=== PATIENT | male | born 1940 | race Caucasian/White ===

== ENCOUNTER 2020-10-27 11:23 | Outpatient (CLI) | payer MEDICARE, OTHER, SELFPAY ==
[2020-10-27 12:32] LABS: Anion Gap 7 mmol/L (8-16); Blood Urea Nitrogen 45 mg/dL (9-20); Calcium 9.5 mg/dL (8.4-10.2); Carbon Dioxide 33 mmol/L (22-30); Chloride 102 mmol/L (98-107); Estimated Glomerular Filt Rate 39; Glucose 145 mg/dL (75-110); Potassium 4.5 mmol/L (3.4-5.0); Sodium 142 mmol/L (137-145)
== END 2020-10-27 11:24 | disposition home or self-care (01) ==
LOC: ANHSURGERY 11:28
PROVIDERS: Anesthesiology; PCP Internal Medicine; Visit Provider Urology
DX: Z01.812 Encounter for preprocedural laboratory examination (principal); Z51.81 Encounter for therapeutic drug level monitoring; Z79.899 Other long term (current) drug therapy
CPT/HCPCS: 36415; 80048

== ENCOUNTER → 2020-11-02 02:02 | Outpatient (CLI) | payer MEDICARE, OTHER, SELFPAY ==
[2020-11-02 17:04] LABS: SARS-CoV-2 RNA PCR Negative
== END ==
PROVIDERS: PCP Internal Medicine; Visit Provider Urology
DX: Z01.812 Encounter for preprocedural laboratory examination (principal); Z20.822 Contact with and (suspected) exposure to COVID-19
CPT/HCPCS: C9803; U0003; U0005

== ENCOUNTER 2020-11-05 00:56 | Day surgery (SDC) | payer MEDICARE, OTHER, SELFPAY ==
[2020-10-23 10:11] VITALS: BMI 33.3
--- NOTE | 2020-10-27 07:33 | PM.HPGS ---
History of Present Illness History of Present Illness Consent: Risks, benefits, and alternatives have been discussed and questions answered. Patient agrees to proceed with procedure. Chief complaint: BPH Narrative: Mauri Sargent is a 79 year old male who is very well known to me with a history of recurrent bladder tumors dating back to February 2011 when he presented with a large papillary lesion. He has had multiple recurrences over the years. He also typically has either frankly abnormal or atypical urinary cytologies and abnormal FISH. this occasion, his cystoscopy was normal but he had abnormal cytology and fish. A CT scan abdomen pelvis with contrast shows some slight progression in chronic bilateral hydronephrosis. Review of Systems Cardiovascular: Cardiovascular: Denies chest pain, Denies lightheadedness, Denies palpitations and Denies dyspnea Respiratory: Respiratory: Denies dyspnea Gastrointestinal: Gastrointestinal: Denies diarrhea, Denies nausea and Denies vomiting Genitourinary: Genitourinary: Denies hematuria and Denies dysuria Endocrine: Endocrine: Denies palpitations PMFSH Social History Social History Smoking status: Former smoker Additional smoking assessment comments: STATES SMOKED <PK/DAY/30+YRS-QUIT 1977 Alcohol intake: never Substance use: never Substance use type: does not use Spiritual care concerns: No Meds Home Medications and Allergies Home Medications Medication Instructions Recorded Confirmed Type aspirin [Aspir-81] 81 mg PO DAILY 10/23/20 10/23/20 History atorvastatin 20 mg HS 10/23/20 10/23/20 History clopidogrel 75 mg DAILY 10/23/20 10/23/20 History escitalopram oxalate [Lexapro] 10 mg PO QAM 10/23/20 10/23/20 History ezetimibe [Zetia] 10 mg PO DAILY 10/23/20 10/23/20 History famotidine [Pepcid] 20 mg PO BID 10/23/20 10/23/20 History furosemide 40 mg BID 10/23/20 10/23/20 History insulin aspart U-100 [Novolog See Rx Instructions .ROUTE .COMPLEX 10/23/20 10/23/20 History U-100 Insulin aspart] insulin degludec [Tresiba U-100 40 unit SUBCUT HS 10/23/20 10/23/20 History Insulin] isosorbide mononitrate 30 mg PO QAM 10/23/20 10/23/20 History metoprolol succinate 100 mg PO QAM 10/23/20 10/23/20 History mirabegron [Myrbetriq] 50 mg PO QAM 10/23/20 10/23/20 History jkucpeeh-ypw-BI-lycopen-lutein 1 tablet PO DAILY 10/23/20 10/23/20 History [Centrum Silver Men] niacin 500 mg PO 3XW 10/23/20 10/23/20 History omega 3-ysu-unv-fish oil [Fish Oil] 1 cap PO DAILY 10/23/20 10/23/20 History Allergies Allergy/AdvReac Type Severity Reaction Status Date / Time BANANAS Allergy Unknown FACIAL Uncoded 10/23/20 10:01 SWELLING Exam Const: General: no acute distress Resp: Effort & Inspection: normal respiratory effort GI: Inspection: non-distended GI Palp: No abdominal tenderness and No Guarding due to palpation present (GI) Auscultation: normal bowel sounds Assessment and Plan Assessment and plan (1) Bilateral hydronephrosis: Code(s): N13.30 - Unspecified hydronephrosis Status: Acute (2) History of neoplasm of bladder: Code(s): Z86.03 - Personal history of neoplasm of uncertain behavior Status: Acute Assessment and Plan: Cystoscopy, bilateral retrograde pyelogram and bilateral ureteroscopy
[2020-11-05] VITALS (8 sets, daily range): BP systolic 91–122; BP diastolic 51–71; PULSE 69–87; RESP 11–20; TEMP 36.3; O2SAT 94–100; BMI 34.4
--- NOTE | ~2020-11-05 | XR_ITS ---
EXAMINATION: XR retrograde pyelogram BI EXAM DATE: 11/05/2020 09:22 INDICATION: Bilateral retrograde pyelogram. TECHNIQUE: Fluoroscopy used during XR retrograde pyelogram BI performed by Dr. Jhonny Fatima MD , urologist. The radiologist Elijah Palafox M.D. dictating this report of the image(s) available was no t present for the procedure. Total fluoroscopic time of 25 seconds. The DAP for this procedure was 1106 radcm2. A total of 79 images sent to PACS from the exam. Cine run(s) available for review. FINDINGS: Right ureter was cannulated and injected. There is severe right hydroureter. Left ureter w as then cannulated and injected, also severe left hydroureter. Images of kidneys, proximal aspects of ureters not available. Correlate with procedure note. IMPRESSION: Severe bilateral hydroureter. Reviewed, dictated and finalized at location B.
--- NOTE | 2020-11-05 06:31 | WPDHPUPDATE1 ---
History and Physical Update Update Date/Time: 11/05/20 06:31 History and Physical has been reviewed, including an updated exam of the patient. There are NO changes in the patient's condition. Risks, benefits, and alternatives have been discussed and questions answered. Patient agrees to proceed with procedure.
[2020-11-05 07:34] LABS: Glucose Point of Care 106 mg/dl (65-105)
--- NOTE | 2020-11-05 07:52 | P.PNAN_ITS ---
Anes - Initial Pre Proc Eval Procedure: Operation Date: 11/05/20 08:30 Proposed Procedures p Cystoscopy, Bilateral Retrograde Pyelogram, Bilateral Ureteroscopy - Jhonny Fatima MD Date/Time: 11/05/20 07:52 Surgeon: Jhonny Fatima MD Pre Op Diagnosis: BPH Patient Data Age: 79 Gender: M Height: 5 ft 5 in Weight: 90.9 kg Allergies Allergy/AdvReac Type Severity Reaction Status Date / Time BANANAS Allergy Intermediate Rash Uncoded 11/05/20 07:06 Home Medications Medication Instructions Recorded Confirmed Type aspirin [Aspir-81] 81 mg PO DAILY 10/23/20 10/23/20 History atorvastatin 20 mg HS 10/23/20 10/23/20 History clopidogrel 75 mg DAILY 10/23/20 10/23/20 History escitalopram oxalate [Lexapro] 10 mg PO QAM 10/23/20 10/23/20 History ezetimibe [Zetia] 10 mg PO DAILY 10/23/20 10/23/20 History famotidine [Pepcid] 20 mg PO BID 10/23/20 10/23/20 History furosemide 40 mg BID 10/23/20 10/23/20 History insulin aspart U-100 [Novolog See Rx Instructions .ROUTE .COMPLEX 10/23/20 10/23/20 History U-100 Insulin aspart] insulin degludec [Tresiba U-100 40 unit SUBCUT HS 10/23/20 10/23/20 History Insulin] isosorbide mononitrate 30 mg PO QAM 10/23/20 10/23/20 History metoprolol succinate 100 mg PO QAM 10/23/20 10/23/20 History mirabegron [Myrbetriq] 50 mg PO QAM 10/23/20 10/23/20 History pojeyfhi-ctv-JX-lycopen-lutein 1 tablet PO DAILY 10/23/20 10/23/20 History [Centrum Silver Men] niacin 500 mg PO 3XW 10/23/20 10/23/20 History omega 4-xej-eem-fish oil [Fish Oil] 1 cap PO DAILY 10/23/20 10/23/20 History Laboratory Tests 11/05/20 07:31 POC Capillary Glucose 106 mg/dl H mg/dl (65-105) Patient hx anesthesia problems: none Family hx anesthesia problems: none FOR[facility]LY [facility], [facility] Past Medical History Medical History CAD (coronary artery disease) Depression Diabetes GERD (gastroesophageal reflux disease) History of neoplasm of bladder Hyperlipidemia Hypertension Pacemaker Surgical History Surgical History Hx of CABG Social History Social History Smoking status: Former smoker Additional smoking assessment comments: STATES SMOKED <PK/DAY/30+YRS-QUIT 1977 Alcohol intake: never Substance use: never Substance use type: does not use Living arrangements: with family Spiritual care concerns: No Anes - Eval Final PreProcedure Day of Procedure 11/05/20 07:52 Patient weight: obese Heart: regular rate and rhythm Lungs: decreased breath sounds Airway: Mallampati scale class II Neurological: alert and oriented Last oral intake: >/= 8 hours ASA classification: IV Emergent: no Anesthetic plan: proceed Anesthesia type and monitoring: general LMA and standard monitoring Informed Consent: The patient's anesthetic plan and its attendant risks and benefits were discussed with the patient/family/POA. Questions were solicited and answers provided to the satisfaction of the patient/family/POA.
[2020-11-05] MEDS: LACTATED RINGERS 1,000 ML 30 ML IV CONT (08:07)
[2020-11-05] MEDS: ceFAZolin 2 GM/D5W 50 ML 2 GM/50 ML BAG IVPB (08:41)
[2020-11-05] MEDS: LIDOCAINE HCL 2% GEL UROJET 10 ML PKG MUCOUS MEM (08:55)
--- NOTE | 2020-11-05 09:21 | P.OP_ITS ---
Procedure Note - Detailed Date of procedure: 11/05/20 Pre-op diagnosis: History of bladder cancer, abnormal cytology Post-op diagnosis: other (Urothelial ca. prostatic urethra) Procedure performed: 1. Cystoscopy, bilateral retrograde pyelography 2. TURBT (prostatic urethra, medium 3-4 cm) Description of procedure: Patient brought the option was prepped draped in routine sterile fashion while in dorsal lithotomy position after the uneventful induction of a general LMA anesthetic. Cystoscopy is undertaken with a 21 F rigid cystoscope. 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 The bladder itself is endoscopically normal. He has unusual patulous ureteral orifices from prior resections. These are almost certainly refluxing which explains the mild hydronephrosis noted on recen t imaging. retrograde pyelography shows patulous ureters consistent with reflux into the distal most ureter. A given the obvious neoplasm in his prostatic urethra I opted not to proceed with upper tract endoscopy. Using a resectoscope I resected the superficial implants in his prostatic urethra and cauterized the base with a rollerball. Scopes wire was removed and a 20 F urethral catheter was placed. Urinary efflux was clear at the termination. Anesthesia: GLMA Surgeon: Jhonny Fatima MD Estimated blood loss (mL): 10 Drains: Yes Packing: No Pathology: yes Complications: No immediate complications Condition: stable Disposition: PACU
[2020-11-05 09:38] LABS: Glucose Point of Care 135 mg/dl (65-105)
--- NOTE | 2020-11-05 12:53 | SUR.PHASEII ---
1130 removed the large painter bag and replaced with a leg bag per dr powers
== END 2020-11-05 11:40 | disposition home or self-care (01) ==
PROVIDERS: PCP Internal Medicine; Visit Provider Urology
PROC: (CPT 52352; principal; 2020-11-05 08:30)
DX: C68.0 Malignant neoplasm of urethra (principal); N13.30 Unspecified hydronephrosis; I25.10 Atherosclerotic heart disease of native coronary artery without angina pectoris; I10 Essential (primary) hypertension; E11.9 Type 2 diabetes mellitus without complications; E78.5 Hyperlipidemia, unspecified; K21.9 Gastro-esophageal reflux disease without esophagitis; F32.9 Major depressive disorder, single episode, unspecified; Z95.0 Presence of cardiac pacemaker; Z95.1 Presence of aortocoronary bypass graft; E66.9 Obesity, unspecified; Z68.34 Body mass index [BMI] 34.0-34.9, adult; Z87.891 Personal history of nicotine dependence; Z79.82 Long term (current) use of aspirin; Z79.02 Long term (current) use of antithrombotics/antiplatelets; Z79.4 Long term (current) use of insulin
CPT/HCPCS: 53899; 74420; 82948; 88108; 88305; A9270; C1758; C1769; J0330; J0690; J1100; J2370; J2405; J2704; J3010; J7120; Q9966

== ENCOUNTER 2022-01-07 09:15 | Outpatient (CLI) | payer MEDICARE, SELFPAY ==
--- NOTE | 2022-01-07 09:30 | ECG_ITS ---
Measurements Intervals [place] Rate: 69 P: 112 MT: 145 QRS: -86 QRSD: 166 T: 120 QT: 459 QTc: 495 Interpretive Statements ELECTRONIC ATRIAL PACEMAKER ELECTRONIC VENTRICULAR PACEMAKER ABNORMAL RHYTHM ECG NO PREVIOUS ECG AVAILABLE FOR COMPARISON Electronically Signed On 01-07-2022 16:26:43 CDT by Evens Horvath M.D.
[2022-01-07 10:03] LABS: Anion Gap 9 mmol/L (8-16); Blood Urea Nitrogen 42 mg/dL (9-20); Calcium 9.1 mg/dL (8.4-10.2); Carbon Dioxide 32 mmol/L (22-30); Chloride 98 mmol/L (98-107); Estimated Glomerular Filt Rate 39; Glucose 160 mg/dL (65-110); Potassium 4.3 mmol/L (3.4-5.0); Sodium 139 mmol/L (137-145)
== END 2022-01-07 09:16 | disposition home or self-care (01) ==
LOC: ANHSURGERY 09:22
PROVIDERS: Anesthesiology; PCP Internal Medicine; Visit Provider Urology
DX: E11.9 Type 2 diabetes mellitus without complications (principal); Z01.818 Encounter for other preprocedural examination; Z95.0 Presence of cardiac pacemaker
CPT/HCPCS: 36415; 80048; 93005

== ENCOUNTER 2022-01-13 02:11 | Day surgery (SDC) | payer MEDICARE, SELFPAY ==
[2022-01-06 12:43] VITALS: BMI 34.2
--- NOTE | 2022-01-06 12:49 | PC.NURSE ---
PRE-OP INSTRUCTIONS, PLEASE READ CAREFULLY Report to the Outpatient Waiting Room, entrance under the green pavilion located off [facility], at time _0600_ on date _01/13/22_. OR Time: _0730_. - You and your visitor will be asked a series of questions to screen for COVID 19 for your protection. - Only one visitor is allowed at this time. - The patient visitor is requested to leave or wait in car when not with patient. - A mask is required within the hospital. Patients may have clear liquids (water, carbonated beverages, clear teas, apple juice) until 3 hours prior to surgery (0430 AM) with a maximum of 20 ounces. - No food from midnight until time of surgery Take the following medications with a SIP of water the morning of surgery: _ESCITALOPRAM, ISOSORBIDE, METOPROLOL, RANOLAZINE_ Medications to discontinue __ASPIRIN, CLOPIDOGREL, FISH OIL - PER DR. MULLINS'S INSTRUCTIONS__ Medications to discontinue per ANESTHESIA -_MULTIVITAMIN 3 DAYS PRIOR TO SURGERY, Date to take last dose 01/09/22_ Please no make-up, nail arabic, hairspray, perfume, deodorant, or body powder the day of surgery. No jewelry (including any body piercings) or valuables the day of surgery, leave them at home. Please take a shower or bath the night before, or the morning of, surgery with an antibacterial soap. Wear comfortable, loose fitting clothing. - Jewelry must be removed prior to entering the operating room. Rings and piercings that are not removed may be cut off. - The hospital will not accept responsibility for valuables. - Please leave all valuables, including medications, at home the day of surgery. If you are going home after surgery, a licensed logging truck driver must drive you home. - NO public transportation without another adult. - We recommend that an adult stay with you for 24 hours following discharge. - We also recommend that you do not drive, make important decision, drink alcoholic beverages, or take any drugs that were not prescribed by your health care provider for at least 24 hours after your discharge time. Follow any additional instructions given to you from your surgeon. If you or anyone in your household have experienced Covid symptoms in the past week, please notify your surgeon or the nurse liaison at the phone number below for possible testing. Telephone instructions given to ___PT and asked if any additional questions and then verbalized understanding. Patient advised to call surgeon office or pre surgery nurse liaison [phone] if any additional questions.
--- NOTE | 2022-01-12 13:49 | WPDANESEPPF ---
Anes - Initial Pre Proc Eval Procedure: Operation Date: 01/13/22 07:30 Proposed Procedures p Trans Urethral Resection Bladder Tumor with Gemcitabine Instillation - Jhonny Fatima MD Date/Time: 01/12/22 13:49 Surgeon: Jhonny Fatima MD Pre Op Diagnosis: gross hematuria Patient Data Age: 81 Gender: M Height: 1.65 m Weight: 93.18 kg Allergies Allergy/AdvReac Type Severity Reaction Status Date / Time BANANAS Allergy Intermediate Rash Uncoded 01/06/22 12:31 Home Medications Medication Instructions Recorded Confirmed Type aspirin 81 mg tablet,delayed 81 mg PO QAM 10/23/20 01/06/22 History release atorvastatin 40 mg tablet 20 mg HS 10/23/20 01/06/22 History clopidogrel 75 mg tablet 75 mg QA 10/23/20 01/06/22 History escitalopram oxalate 10 mg tablet 10 mg PO QAM 10/23/20 01/06/22 History (Lexapro) ezetimibe 10 mg tablet (Zetia) 10 mg PO QA 10/23/20 01/06/22 History famotidine 20 mg tablet (Pepcid) 20 mg PO HS 10/23/20 01/07/22 History furosemide 40 mg tablet 40 mg BID 10/23/20 01/06/22 History insulin aspart U-100 100 unit/mL See Rx Instructions .Route .COMPLEX 10/23/20 01/06/22 History subcutaneous solution (Novolog U-100 Insulin aspart) insulin degludec 100 unit/mL 54 unit subcut 10/23/20 01/06/22 History subcutaneous solution (Tresiba U-100 Insulin) isosorbide mononitrate 30 mg 30 mg PO QAM 10/23/20 01/06/22 History tablet,extended release 24 hr metoprolol succinate 50 mg 100 mg PO QAM 10/23/20 01/06/22 History tablet,extended release 24 hr mirabegron 50 mg tablet,extended 50 mg PO QAM 10/23/20 01/06/22 History release 24 hr (Myrbetriq) ojvaftrr-nlz-zoodr acid 300 1 tablet PO QAM 10/23/20 01/06/22 History mcg-lycopene 600 mcg-lutein 300 mcg tablet (Centrum Silver Men) niacin 500 mg capsule 250 mg PO HS 10/23/20 01/06/22 History omega 5-xtq-ltw-fish oil 1,000 mg 1 cap PO QAM 10/23/20 01/06/22 History (120 mg-180 mg) capsule (Fish Oil) finasteride 5 mg tablet 5 mg QAM 01/06/22 01/06/22 History hydrochlorothiazide 12.5 mg tablet 12.5 mg PO QAM 01/06/22 01/06/22 History lancets (Accu-Chek Fastclix Lancet 01/06/22 01/06/22 History Drum) ranolazine 500 mg tablet,extended 500 mg PO BID 01/06/22 01/06/22 History release,12 hr valsartan 80 mg tablet 80 mg QAM 01/06/22 01/06/22 History Patient hx anesthesia problems: none Family hx anesthesia problems: none Results Review: All pre-operative results and documents have been reviewed as part of the pre-operative evaluation. [facility] Past Medical History Medical History (Updated 01/12/22 @ 13:50 by Bo Lopez DO) CAD (coronary artery disease) Depression Diabetes GERD (gastroesophageal reflux disease) History of neoplasm of bladder Hyperlipidemia Hypertension ICD (implantable cardioverter-defibrillator) in place LISSET (obstructive sleep apnea) CPAP Pacemaker Surgical History Surgical History (Updated 01/12/22 @ 13:50 by Bo Lopez DO) Hx of CABG x3 2001 Social History Social History Smoking status: Former smoker Tobacco type: cigarettes Second hand tobacco smoke exposure: No Additional smoking assessment comments: STATES <PK/DAY/30+YRS/QUIT 1977 Alcohol intake: never Substance use: never Substance use type: does not use Living arrangements: with family Spiritual care concerns: No Anes - Eval Final PreProcedure Day of Procedure 01/12/22 13:49 Patient weight: obese Heart: regular rate and rhythm Lungs: clear to auscultation Airway: Mallampati scale class II and special considerations poor dentition Neurological: alert and oriented Last oral intake: >/= 8 hours ASA classification: IV Emergent: no Anesthetic plan: proceed Anesthesia type and monitoring: general LMA and standard monitoring Results Review: All pre-operative results and documents have been reviewed as part of the
[2022-01-13] VITALS (10 sets, daily range): BP systolic 92–139; BP diastolic 56–70; PULSE 69–73; RESP 12–16; TEMP 36.2–36.3; O2SAT 94–100
--- NOTE | 2022-01-13 06:48 | WPDHPUPDATE1 ---
History and Physical Update Update Date/Time: 01/13/22 06:48 History and Physical has been reviewed, including an updated exam of the patient. There are NO changes in the patient's condition. Risks, benefits, and alternatives have been discussed and questions answered. Patient agrees to proceed with procedure.
[2022-01-13 06:53] LABS: Glucose Point of Care 97 mg/dl (65-105)
[2022-01-13] MEDS: LACTATED RINGERS 1,000 ML 30 ML IV CONT (06:59)
[2022-01-13] MEDS: ceFAZolin 2 GM/D5W 50 ML 2 GM/50 ML BAG IVPB (07:29)
--- NOTE | 2022-01-13 08:00 | W.PM.PROC2 ---
Procedure Note - Detailed Date of Procedure 01/13/22 Pre-op Diagnosis Recurrent bladder tumors Post-op Diagnosis Same Procedure Performed TURBT (medium, 3cm) Surgeon Jhonny Fatima MD Description of Procedure The patient was brought to the operative suite where he is prepped and draped in a routine sterile fashion while in the dorsal lithotomy position. This is done after the uneventful induction of a general LMA anesthetic. A 24F resectoscope sheath was placed in the bladder and the bladder is circumferentially inspected carefully. 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 These resected with a loop electrode. He has a larger growth in the prostatic urethra which was resected in a similar fashion. There was an area of hyperemia near the dome of the bladder which was cauterized with a rollerball. All sites were cauterized both the loop and rollerball with care taken to avoid injury to the ureteral orifices. The bladder is emptied and the resectoscope was removed. The patient is taken to the recovery room having tolerated this procedure well. Pathology Yes Complications No immediate complications Condition Stable Disposition PACU
--- NOTE | 2022-01-13 08:03 | W.PM.PROC2 ---
Procedure Note - Detailed Date of Procedure 01/13/22 Pre-op Diagnosis Recurrent bladder tumor Post-op Diagnosis Same Procedure Performed Gemcitabine installation into the bladder Surgeon Jhonny Fatima MD Anesthesia None Description of Procedure With the patient in the supine position, a 18F Arzate catheter is placed using sterile technique. Using a protective facemask, gown and double layer of gloves Gemcitabine 2gm in 100cc saline is administered through the catheter/into the bladder. The catheter is then plugged. Patient was instructed to lie supine x20min, then to roll both the left and right x20 min. each. Total dwell time will be 60 min., after which the bladder will be drained and catheter removed. Drains No Packing No Pathology None sent Complications No immediate complications Condition Stable
[2022-01-13] MEDS: SODIUM CHLORIDE 0.9% IV 23.7 ML, GEMCITABINE HCL 1,000 MG BLADDER ×2 (08:11→08:12)
[2022-01-13 08:28] LABS: Glucose Point of Care 93 mg/dl (65-105)
[2022-01-13] MEDS: fentaNYL CITRATE INJ (*CRX) 100 MCG/2 ML VIAL 25 MCG IV PUSH ×2 (08:46→08:51)
[2022-01-13] MEDS: SODIUM CHLORIDE 0.9% IV 50 ML BAG 150 ML IRRIGATION (09:15)
== END 2022-01-13 10:15 | disposition home or self-care (01) ==
PROVIDERS: PCP Internal Medicine; Visit Provider Urology
PROC: 0TBB8ZZ Excision of Bladder, Via Natural or Artificial Opening Endoscopic (ICD-10-PCS; CPT 52235; principal; 2022-01-13 07:30)
DX: C67.5 Malignant neoplasm of bladder neck (principal); R31.0 Gross hematuria; N40.1 Benign prostatic hyperplasia with lower urinary tract symptoms; N52.9 Male erectile dysfunction, unspecified; R31.29 Other microscopic hematuria; R82.90 Unspecified abnormal findings in urine; N30.00 Acute cystitis without hematuria; N32.81 Overactive bladder; Z95.810 Presence of automatic (implantable) cardiac defibrillator; I25.2 Old myocardial infarction; E78.00 Pure hypercholesterolemia, unspecified; E11.9 Type 2 diabetes mellitus without complications; G43.909 Migraine, unspecified, not intractable, without status migrainosus; M19.90 Unspecified osteoarthritis, unspecified site; K21.9 Gastro-esophageal reflux disease without esophagitis; G47.30 Sleep apnea, unspecified; Z95.1 Presence of aortocoronary bypass graft; Z79.82 Long term (current) use of aspirin; Z79.4 Long term (current) use of insulin; I25.10 Atherosclerotic heart disease of native coronary artery without angina pectoris; G47.33 Obstructive sleep apnea (adult) (pediatric); F32.A Depression, unspecified; E78.5 Hyperlipidemia, unspecified; I10 Essential (primary) hypertension
CPT/HCPCS: 52235; 51720; 82948; 88305; A9270; J0690; J1100; J2405; J2704; J3010; J7120; J9201

== ENCOUNTER 2023-02-23 13:15 | Outpatient (CLI) | payer MEDICARE, SELFPAY ==
--- NOTE | 2023-02-23 13:45 | ECG_ITS ---
Measurements Intervals [place] Rate: 67 P: 230 CT: 134 QRS: -76 QRSD: 174 T: 110 QT: 465 QTc: 494 Interpretive Statements ATRIAL SENSE- ELECTRONIC VENTRICULAR PACEMAKER BASELINE ARTIFACT- I, II, AVR NO FURTHER INTERPRETATION IS POSSIBLE ATYPICAL ECG COMPARED TO ECG 01/07/2022 09:39:00 NO SIGNIFICANT CHANGES Electronically Signed On 02-23-2023 13:57:14 CDT by James Espinoza D.O.
[2023-02-23 14:20] LABS: Partial Thromboplastin Time 31.4 SECONDS (22.3-36.8)
[2023-02-23 14:57] LABS: Anion Gap 8 mmol/L (8-16); Blood Urea Nitrogen 53 mg/dL (9-20); Carbon Dioxide 29 mmol/L (22-30); Chloride 100 mmol/L (98-107); Estimated Glomerular Filt Rate 29; Glucose 137 mg/dL (65-110); Potassium 4.4 mmol/L (3.4-5.0); Sodium 137 mmol/L (137-145)
== END 2023-02-23 13:16 | disposition home or self-care (01) ==
LOC: ANHSURGERY 13:21
PROVIDERS: Anesthesiology; PCP Family Medicine; Visit Provider Urology
DX: E11.9 Type 2 diabetes mellitus without complications (principal); I12.9 Hypertensive chronic kidney disease with stage 1 through stage 4 chronic kidney disease, or unspecified chronic kidney disease; N18.30 Chronic kidney disease, stage 3 unspecified; Z01.818 Encounter for other preprocedural examination
CPT/HCPCS: 36415; 80048; 85610; 85730; 93005

== ENCOUNTER 2023-03-02 00:50 | Day surgery (SDC) | payer MEDICARE, SELFPAY ==
[2023-02-20 10:47] VITALS: BMI 32.6
--- NOTE | 2023-02-20 11:24 | PC.NURSE ---
Report to the Outpatient Waiting Room, entrance under the green pavilion located off [facility], at time __10:00AM on date __03/02/23 . Planned Procedure Time: ___12:00PM . Time changes happen often and if your time is changed the preop area will call you the afternoon before. - You and your visitor will be asked to self-screen and do not enter if you have any COVID symptoms. - A mask is optional within the hospital at this time. Patients may have clear liquids (water, carbonated beverages, clear teas, apple juice) until 3 hours prior to surgery with a maximum of 20 ounces. - No food from midnight until time of surgery Take the following medications with a SIP of water the morning of surgery: ___CARVEDILOL, ESCITALOPRAM, ISOSORBIDE, RANOLAZINE, 1/2 DOSE AM INSULIN DO NOT STOP ANY OF YOUR OTHER PRESCRIPTION MEDICATIONS PRIOR TO SURGERY ?EXCEPT THE FOLLOWING Medications to discontinue per physician ___HOLD PLAVIX, ASPIRIN & ALL VITAMINS/SUPPLEMENTS 7 DAYS PRE-OP PER DR MULLINS(PER PATIENT). Date to take last dose____02/23/23 Please no make-up, nail indonesian, hairspray, perfume, deodorant, or body powder the day of surgery. No jewelry (including any body piercings) or valuables the day of surgery, leave them at home. Please take a shower or bath the night before, or the morning of, surgery with an antibacterial soap. Wear comfortable, loose fitting clothing. Children are encouraged to wear pajamas. - Jewelry must be removed prior to entering the operating room. Rings and piercings that are not removed may be cut off. - The hospital will not accept responsibility for valuables. - Please leave all valuables, including medications, at home the day of surgery. If you are going home after surgery, a licensed starting gate driver must drive you home. - NO public transportation without another adult if you receive anesthesia. - We recommend that an adult stay with you for 24 hours following discharge. - We also recommend that you do not drive, make important decision, drink alcoholic beverages, or take any drugs that were not prescribed by your health care provider for at least 24 hours after your discharge time. Follow any additional instructions given to you from your surgeon. If you or anyone in your household have experienced Covid symptoms in the past week, please notify your surgeon or the nurse liaison at the phone number below for possible testing. Telephone instructions given to __PATIENT and asked if any additional questions and then verbalized understanding. Patient advised to call surgeon office or pre surgery nurse liaison [phone] if any additional questions.
--- NOTE | 2023-02-23 15:47 | PM.HPGS ---
History of Present Illness History of Present Illness Consent: Risks, benefits, and alternatives have been discussed and questions answered. Patient agrees to proceed with procedure. 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 On occasion this is included /involve the prostatic urethra. Recently, although cystoscopy is grossly unremarkable, urinary cytology and FISH have been abnormal. After discussion options he elects to proceed with cystoscopy with selective upper tract cytology collection, bilateral retrograde pyelography, bladder and prostatic urethral biopsies. He wears the risk including, but not limited to, hematuria, need for additional procedures. Review of Systems Review of Systems: All systems reviewed & are unremarkable except as noted in HPI and below PMFSH Past Medical History Medical History (Updated 02/23/23 @ 15:50 by Jhonny Fatima MD) CAD (coronary artery disease) Depression Diabetes GERD (gastroesophageal reflux disease) History of neoplasm of bladder Hyperlipidemia Hypertension ICD (implantable cardioverter-defibrillator) in place LISSET (obstructive sleep apnea) CPAP Pacemaker Surgical History Surgical History (Updated 01/12/22 @ 13:50 by Bo Lopez DO) Hx of CABG x3 2001 Social History Social History Smoking packs per day: 1 Smoking cigarettes per day: 20.0 Years smoked: 35 Smoking pack-years: 35.00 Smoking status: Former smoker Tobacco type: cigarettes Second hand tobacco smoke exposure: No Smoking end date: 03/05/78 Additional smoking assessment comments: STATES <PK/DAY/30+YRS/QUIT 1977 Alcohol intake: never Substance use: never Substance use type: does not use Living arrangements: with family Additional living arrangements comments: Spiritual care concerns: No Meds Home Medications and Allergies Home Medications Medication Instructions Recorded Confirmed Type aspirin 81 mg tablet,delayed 81 mg PO QAM 10/23/20 02/20/23 History release atorvastatin 40 mg tablet 20 mg PO 10/23/20 02/20/23 History clopidogrel 75 mg tablet 75 mg PO QAM 10/23/20 02/20/23 History escitalopram oxalate 10 mg tablet 10 mg PO QAM 10/23/20 02/20/23 History (Lexapro) ezetimibe 10 mg tablet (Zetia) 10 mg PO QAM 10/23/20 02/20/23 History famotidine 20 mg tablet (Pepcid) 20 mg PO HS 10/23/20 02/20/23 History furosemide 40 mg tablet 40 mg PO QAM 10/23/20 02/20/23 History insulin aspart U-100 100 unit/mL See Rx Instructions .Route .COMPLEX 10/23/20 02/20/23 History subcutaneous solution (Novolog U-100 Insulin aspart) insulin degludec 100 unit/mL 38 unit subcut HS 10/23/20 02/20/23 History subcutaneous solution (Tresiba U-100 Insulin) isosorbide mononitrate 30 mg 60 mg PO QAM 10/23/20 02/20/23 History tablet,extended release 24 hr mirabegron 50 mg tablet,extended 50 mg PO QAM 10/23/20 02/20/23 History release 24 hr (Myrbetriq) nidjvplf-ec-corpx 300 mcg-K 60 1 tablet PO QAM 10/23/20 02/20/23 History mcg-lycop 600 mcg-lutein 300 mcg tablet (Centrum Silver Men) omega 1-huk-jax-fish oil 1,000 mg 1 cap PO QAM 10/23/20 02/20/23 History (120 mg-180 mg) capsule (Fish Oil) finasteride 5 mg tablet 5 mg PO QAM 01/06/22 02/20/23 History lancets (Accu-Chek Fastclix Lancet 01/06/22 01/06/22 History Drum) ranolazine 500 mg tablet,extended 1,000 mg PO BID 01/06/22 02/20/23 History release,12 hr valsartan 80 mg tablet 80 mg PO QAM 01/06/22 02/20/23 History acetaminophen 650 mg 650 mg PO Q12H PRN Pain 02/20/23 02/20/23 History tablet,extended release carvedilol 3.125 mg tablet 3.125 mg PO BID 02/20/23 02/20/23 History cyanocobalamin (vitamin B-12) 5,000 mcg PO DAILY 02/20/23
[2023-03-02] VITALS (11 sets, daily range): BP systolic 91–118; BP diastolic 44–77; PULSE 60–79; RESP 13–19; TEMP 36.2–36.9; O2SAT 98–100; BMI 33.4
--- NOTE | ~2023-03-02 | XR_ITS ---
EXAMINATION: XR retrograde pyelogram BI DATE: 03/02/2023 11:42 INDICATION: Cystoscopy and bilateral retrograde pyelograms. TECHNIQUE: A total of 230 fluoroscopic images of the abdomen and pelvis were obtained during procedur e performed by Dr. Fatima. Radiologist was not present for the imaging or procedure. The amount of fl uoroscopy time used during this procedure was 1.2 minutes. COMPARISON: 11/05/2020 FINDINGS: Images demonstrate cannulation and retrograde contrast injection into the bilateral ureters and renal collecting systems. There is significant bilateral hydroureteronephrosis. The ureters are tortuous b ut without evident strictures, urothelial irregularities or filling defects. IMPRESSION: 1. Bilateral hydroureteronephrosis without evident obstructing lesions suggesting outlet obstruction at or distal to the level of the bladder. See procedure note for further detail. Reviewed, dictated and finalized at location A. IMPRESSION: 1. Bilateral hydroureteronephrosis without evident obstructing lesions suggesti ng outlet obstruction at or distal to the level of the bladder. See procedure n ote for further detail.
--- NOTE | 2023-03-02 06:38 | WPDHPUPDATE1 ---
History and Physical Update Update Date/Time: 03/02/23 06:38 History and Physical has been reviewed, including an updated exam of the patient. There are NO changes in the patient's condition. Risks, benefits, and alternatives have been discussed and questions answered. Patient agrees to proceed with procedure.
--- NOTE | 2023-03-02 10:34 | WPDANESEPPF ---
Anes - Initial Pre Proc Eval Procedure: Operation Date: 03/02/23 12:00 Proposed Procedures p Cystoscopy, Bilateral Ureteral Catheterization, Selective Cytology Bladder and Prostatic Urethral Biopsy - Jhonny Fatima MD Date/Time: 03/02/23 10:34 Surgeon: Jhonny Fatima MD Pre Op Diagnosis: abnormal cytology, bladder cancer Patient Data Age: 82 Gender: M Height: 1.65 m Weight: 89 kg Allergies Allergy/AdvReac Type Severity Reaction Status Date / Time niacin Allergy ITCHING, Verified 02/20/23 10:22 FLUSHED FACE BANANAS Allergy Intermediate Rash Uncoded 02/20/23 10:21 Home Medications Medication Instructions Recorded Confirmed Type aspirin 81 mg tablet,delayed 81 mg PO QAM 10/23/20 02/20/23 History release atorvastatin 40 mg tablet 20 mg PO HS 10/23/20 02/20/23 History clopidogrel 75 mg tablet 75 mg PO QAM 10/23/20 02/20/23 History escitalopram oxalate 10 mg tablet 10 mg PO QAM 10/23/20 02/20/23 History (Lexapro) ezetimibe 10 mg tablet (Zetia) 10 mg PO QAM 10/23/20 02/20/23 History famotidine 20 mg tablet (Pepcid) 20 mg PO HS 10/23/20 02/20/23 History furosemide 40 mg tablet 40 mg PO QAM 10/23/20 02/20/23 History insulin aspart U-100 100 unit/mL See Rx Instructions .Route .COMPLEX 10/23/20 02/20/23 History subcutaneous solution (Novolog U-100 Insulin aspart) insulin degludec 100 unit/mL 38 unit subcut HS 10/23/20 02/20/23 History subcutaneous solution (Tresiba U-100 Insulin) isosorbide mononitrate 30 mg 60 mg PO QAM 10/23/20 02/20/23 History tablet,extended release 24 hr mirabegron 50 mg tablet,extended 50 mg PO QAM 10/23/20 02/20/23 History release 24 hr (Myrbetriq) azioqfpu-bz-nvwtb 300 mcg-K 60 1 tablet PO QAM 10/23/20 02/20/23 History mcg-lycop 600 mcg-lutein 300 mcg tablet (Centrum Silver Men) omega 6-xmn-ibr-fish oil 1,000 mg 1 cap PO QAM 10/23/20 02/20/23 History (120 mg-180 mg) capsule (Fish Oil) finasteride 5 mg tablet 5 mg PO QAM 01/06/22 02/20/23 History lancets (Accu-Chek Fastclix Lancet 01/06/22 01/06/22 History Drum) ranolazine 500 mg tablet,extended 1,000 mg PO BID 01/06/22 02/20/23 History release,12 hr valsartan 80 mg tablet 80 mg PO QAM 01/06/22 02/20/23 History acetaminophen 650 mg 650 mg PO Q12H PRN Pain 02/20/23 02/20/23 History tablet,extended release carvedilol 3.125 mg tablet 3.125 mg PO BID 02/20/23 02/20/23 History cyanocobalamin (vitamin B-12) 5,000 mcg PO DAILY 02/20/23 02/20/23 History 5,000 mcg capsule furosemide 40 mg tablet 20 mg PO DIRECTED 02/20/23 02/20/23 History nitrofurantoin macrocrystal 100 mg 100 mg PO BID 02/20/23 02/20/23 History capsule nitroglycerin 0.4 mg sublingual 0.4 mg sublingual Q1-3M PRN Chest 02/20/23 02/20/23 History tablet Pain Patient hx anesthesia problems: none Family hx anesthesia problems: none Results Review: All pre-operative results and documents have been reviewed as part of the pre-operative evaluation. [facility] Past Medical History Medical History CAD (coronary artery disease) Depression Diabetes GERD (gastroesophageal reflux disease) History of neoplasm of bladder Hyperlipidemia Hypertension ICD (implantable cardioverter-defibrillator) in place LISSET (obstructive sleep apnea) CPAP Pacemaker Surgical History Surgical History Hx of CABG x3 2001 Social History Social History Smoking packs per day: 1 Smoking cigarettes per day: 20.0 Years smoked: 35 Smoking pack-years: 35.00 Smoking status: Former smoker Tobacco type: cigarettes Second hand tobacco smoke exposure: No Smoking end date: 03/05/78 Additional smoking assessment comments: [place] <PK/DAY/30+YRS/QUIT 1977 Alcohol intake: never Substance use: never Substance use type: does not use Living arrangements: wi
[2023-03-02] MEDS: LACTATED RINGERS 1,000 ML 30 ML IV CONT (10:40)
[2023-03-02 10:51] LABS: Glucose Point of Care 115 mg/dl (65-105)
[2023-03-02] MEDS: ceFAZolin 2 GM/D5W 50 ML 2 GM/50 ML BAG IVPB (11:02)
[2023-03-02] MEDS: LIDOCAINE HCL 2% GEL UROJET 10 ML PKG MUCOUS MEM (11:34)
[2023-03-02] MEDS: SODIUM CHLORIDE 0.9% IV 23.7 ML, GEMCITABINE HCL 1,000 MG BLADDER ×2 (11:50)
--- NOTE | 2023-03-02 11:54 | P.OP_ITS ---
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 Bilateral retrograde pyelography, biopsy of prostatic urethra and bladder Surgeon Jhonny Fatima MD Anesthesia General Description of Procedure Patient is brought to the operative suite was prepped draped in routine sterile fashion while in dorsal lithotomy position after the uneventful induction of a general LMA anesthetic. Cystoscopy is undertaken with a 19 F rigid cystoscope. He has no urethral stricture. I could immediately see he has scant urothelial neoplasm that is growing again in the prostatic urethra, near the apex. The bladder shows 1 area of very minimal hyperemia ( likely of no significance ) in the posterior bladder wall. The bladder mucosa is otherwise normal without kimberly neoplasm or areas of concern. Patient has a patulous refluxing ureteral o rifices bilaterally. I did place open-ended ureteral catheters over guidewires into each renal pelvis and obtained washings for cytology from each kidney. Separate ureteral catheters were used for each kidney. I then performed retrograde pyelogram which showed tortuous ureters without kimberly filling defects. Using a loop electrode I resected the papillary neoplastic areas in his prostatic urethra and biopsied the posterior bladder wall, at the site of slight hyperemia. The base of these resected sites was cauterized with the rollerball. Drains No Pathology Yes Complications No immediate complications
--- NOTE | 2023-03-02 11:58 | P.OP_ITS ---
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 Using a protective facemask, gown and double layer of gloves Gemcitabine 2gm in 100cc saline is administered through the catheter/into the bl adder. The catheter is then plugged. Patient was instructed to lie supine x20min, then to roll both the left and right x20 min. each. Total dwell time will be 60 min., after which the bladder will be drained and catheter removed.
[2023-03-02 12:39] LABS: Glucose Point of Care 112 mg/dl (65-105)
[2023-03-02] MEDS: SODIUM CHLORIDE 0.9% IV 50 ML BAG 150 ML IRRIGATION (13:10)
== END 2023-03-02 14:21 | disposition home or self-care (01) ==
PROVIDERS: PCP Family Medicine; Visit Provider Urology
PROC: 0TBB8ZX Excision of Bladder, Via Natural or Artificial Opening Endoscopic, Diagnostic (ICD-10-PCS; CPT 52204; principal; 2023-03-02 12:00)
DX: C68.0 Malignant neoplasm of urethra (principal); C67.4 Malignant neoplasm of posterior wall of bladder; I25.10 Atherosclerotic heart disease of native coronary artery without angina pectoris; E11.9 Type 2 diabetes mellitus without complications; I10 Essential (primary) hypertension; E78.5 Hyperlipidemia, unspecified; K21.9 Gastro-esophageal reflux disease without esophagitis; F32.A Depression, unspecified; G47.33 Obstructive sleep apnea (adult) (pediatric); Z95.810 Presence of automatic (implantable) cardiac defibrillator; Z95.1 Presence of aortocoronary bypass graft; Z87.891 Personal history of nicotine dependence; Z79.82 Long term (current) use of aspirin; Z79.02 Long term (current) use of antithrombotics/antiplatelets; Z79.4 Long term (current) use of insulin; E66.9 Obesity, unspecified; Z68.33 Body mass index [BMI] 33.0-33.9, adult
CPT/HCPCS: 52204; 51720; 74420; 82948; 88108; 88305; C1758; G0416; J0690; J1100; J2405; J2704; J3010; J7120; J9201; Q9966

== ENCOUNTER 2023-09-25 12:05 | Outpatient (CLI) | payer MEDICARE, SELFPAY ==
[2023-09-25 13:11] LABS: Prothrombin Time 13.4 Seconds (11.1-14.7)
[2023-09-25 13:22] LABS: Anion Gap 10 mmol/L (4-12); Blood Urea Nitrogen 66 mg/dL (9-20); Calcium 9.5 mg/dL (8.4-10.2); Carbon Dioxide 23 mmol/L (22-30); Chloride 105 mmol/L (98-107); Estimated Glomerular Filt Rate 22; Glucose 146 mg/dL (65-110); Potassium 4.7 mmol/L (3.4-5.0); Sodium 138 mmol/L (137-145)
== END 2023-09-25 12:06 | disposition home or self-care (01) ==
LOC: ANHSURGERY 12:09
PROVIDERS: Anesthesiology; PCP Family Medicine; Visit Provider Urology
DX: Z01.818 Encounter for other preprocedural examination (principal); N28.9 Disorder of kidney and ureter, unspecified
CPT/HCPCS: 36415; 80048; 85610; 85730

== ENCOUNTER 2023-09-28 00:30 | Day surgery (SDC) | payer MEDICARE, SELFPAY ==
[2023-09-22 11:10] VITALS: BMI 30.8
--- NOTE | 2023-09-22 11:23 | PC.NURSE ---
PRE-OP INSTRUCTIONS, PLEASE READ CAREFULLY Report to the Outpatient Waiting Room, entrance under the green pavilion located off [facility], at time _0845_ on date _09/28/23_. Planned Procedure Time: _1045_. Time changes happen often and if your time is changed the preop area will call you the afternoon before. - You and your visitor will be asked to self-screen and do not enter if you have any COVID symptoms. - A mask is optional within the hospital at this time. Patients may have clear liquids (water, carbonated beverages, clear teas, apple juice) until 3 hours prior to surgery (0745 AM) with a maximum of 20 ounces. - No food from midnight until time of surgery Take the following medications with a SIP of water the morning of surgery: _CARVEDILOL, LEXAPRO, ISOSORBIDE, RANOLAZINE, & TYLENOL, NITROGLYCERIN IF NEEDED_ DO NOT STOP ANY OF YOUR OTHER PRESCRIPTION MEDICATIONS PRIOR TO SURGERY ?EXCEPT THE FOLLOWING Medications to discontinue per DR. MULLINS - _ASPIRIN, CLOPIDOGREL, FISH OIL, MULTIVITAMIN 7 DAYS PRIOR TO SURGERY, last dose taken 09/21/23 (PER PATIENT)_ Please no make-up, nail south korean, hairspray, perfume, deodorant, or body powder the day of surgery. No jewelry (including any body piercings) or valuables the day of surgery, leave them at home. Please take a shower or bath the night before, or the morning of, surgery with an antibacterial soap. Wear comfortable, loose fitting clothing. - Jewelry must be removed prior to entering the operating room. Rings and piercings that are not removed may be cut off. - The hospital will not accept responsibility for valuables. - Please leave all valuables, including medications, at home the day of surgery. If you are going home after surgery, a licensed city driver must drive you home. - NO public transportation without another adult if you receive anesthesia. - We recommend that an adult stay with you for 24 hours following discharge. - We also recommend that you do not drive, make important decision, drink alcoholic beverages, or take any drugs that were not prescribed by your health care provider for at least 24 hours after your discharge time. Follow any additional instructions given to you from your surgeon. If you or anyone in your household have experienced Covid symptoms in the past week, please notify your surgeon or the nurse liaison at the phone number below for possible testing. Telephone instructions given to _PATIENT_and asked if any additional questions and then verbalized understanding. Patient advised to call surgeon office or pre surgery nurse liaison [phone] if any additional questions.
[2023-09-28] VITALS (9 sets, daily range): BP systolic 88–113; BP diastolic 46–57; PULSE 65–71; RESP 14–20; TEMP 36.1–36.8; O2SAT 98–100
--- NOTE | 2023-09-28 06:07 | WPDHPUPDATE1 ---
History and Physical Update Update Date/Time: 09/28/23 06:07 History and Physical has been reviewed, including an updated exam of the patient. There are NO changes in the patient's condition. Risks, benefits, and alternatives have been discussed and questions answered. Patient agrees to proceed with procedure.
[2023-09-28] MEDS: LACTATED RINGERS 1,000 ML 30 ML IV CONT (10:00)
--- NOTE | 2023-09-28 10:03 | WPDANESEPPF ---
Anes - Initial Pre Proc Eval Procedure: Operation Date: 09/28/23 10:45 Proposed Procedures p Cystoscopy, Urethral Dilatation - Jhonny Fatima MD s Possible Trans Urethral Resection Bladder Tumor, Holmium Laser Ablation Urethral Growth - Jhonny Fatima MD Date/Time: 09/28/23 10:03 Surgeon: Jhonny Fatima MD Pre Op Diagnosis: Bladder Cancer Patient Data Age: 82 Gender: M Height: 1.65 m Weight: 84.9 kg Allergies Allergy/AdvReac Type Severity Reaction Status Date / Time niacin Allergy Mild ITCHING, Verified 09/28/23 09:35 FLUSHED FACE BANANAS Allergy Severe Rash Uncoded 09/28/23 09:35 Home Medications Medication Instructions Recorded Confirmed Type aspirin 81 mg tablet,delayed 81 mg PO QAM 10/23/20 09/28/23 History release atorvastatin 40 mg tablet 20 mg PO HS 10/23/20 09/28/23 History clopidogrel 75 mg tablet 75 mg PO QAM 10/23/20 09/28/23 History escitalopram oxalate 10 mg tablet 10 mg PO QAM 10/23/20 09/28/23 History (Lexapro) ezetimibe 10 mg tablet (Zetia) 10 mg PO QAM 10/23/20 09/28/23 History famotidine 20 mg tablet (Pepcid) 20 mg PO HS 10/23/20 09/28/23 History furosemide 40 mg tablet 40 mg PO QAM 10/23/20 09/28/23 History insulin aspart U-100 100 unit/mL See Rx Instructions .Route .COMPLEX 10/23/20 09/28/23 History subcutaneous solution (Novolog U-100 Insulin aspart) insulin degludec 100 unit/mL 32 unit subcut HS 10/23/20 09/28/23 History subcutaneous solution (Tresiba U-100 Insulin) isosorbide mononitrate 30 mg 60 mg PO QAM 10/23/20 09/28/23 History tablet,extended release 24 hr mirabegron 50 mg tablet,extended 50 mg PO QAM 10/23/20 09/28/23 History release 24 hr (Myrbetriq) idsthgxq-zk-fxwva 300 mcg-K 60 1 tablet PO QAM 10/23/20 09/28/23 History mcg-lycop 600 mcg-lutein 300 mcg tablet (Centrum Silver Men) omega 4-jca-zcm-fish oil 1,000 mg 1 cap PO QAM 10/23/20 09/28/23 History (120 mg-180 mg) capsule (Fish Oil) finasteride 5 mg tablet 5 mg PO QAM 01/06/22 09/28/23 History lancets (Accu-Chek Fastclix Lancet 01/06/22 09/28/23 History Drum) ranolazine 500 mg tablet,extended 1,000 mg PO BID 01/06/22 09/28/23 History release,12 hr valsartan 80 mg tablet 80 mg PO QAM 01/06/22 09/28/23 History acetaminophen 650 mg 650 mg PO Q12H PRN Pain 02/20/23 09/28/23 History tablet,extended release carvedilol 3.125 mg tablet 3.125 mg PO BID 02/20/23 09/28/23 History cyanocobalamin (vitamin B-12) 5,000 mcg PO DAILY 02/20/23 09/28/23 History 5,000 mcg capsule furosemide 40 mg tablet 20 mg PO DIRECTED 02/20/23 09/28/23 History nitroglycerin 0.4 mg sublingual 0.4 mg sublingual Q1-3M PRN Chest 02/20/23 09/28/23 History tablet Pain Patient hx anesthesia problems: none Family hx anesthesia problems: none Results Review: All pre-operative results and documents have been reviewed as part of the pre-operative evaluation. [facility] Past Medical History Medical History CAD (coronary artery disease) Depression Diabetes GERD (gastroesophageal reflux disease) History of neoplasm of bladder Hyperlipidemia Hypertension ICD (implantable cardioverter-defibrillator) in place LISSET (obstructive sleep apnea) CPAP Pacemaker Surgical History Surgical History Hx of CABG x3 2001 Social History Social History Smoking packs per day: 1 Smoking cigarettes per day: 20.0 Years smoked: 35 Smoking pack-years: 35.00 Smoking status: Former smoker Tobacco type: cigarettes Second hand tobacco smoke exposure: No Smoking end date: 03/05/78 Additional smoking assessment comments: [place] <PK/DAY/30+YRS/QUIT 1977 Alcohol intake: never Substance use: never Substance use type: does not use Living arrangements: with family Additional living arrangements comments:
[2023-09-28 10:10] LABS: Glucose Point of Care 95 mg/dl (65-105)
[2023-09-28] MEDS: ceFAZolin 2 GM/D5W 50 ML 2 GM/50 ML BAG IVPB (10:22)
[2023-09-28] MEDS: LIDOCAINE HCL 2% GEL UROJET 10 ML PKG MUCOUS MEM (10:31)
--- NOTE | 2023-09-28 11:02 | P.OP_ITS ---
Procedure Note - Detailed Date of Procedure 09/28/23 Pre-op Diagnosis Bladder Cancer Post-op Diagnosis Same Procedure Performed Cystoscopy, urethral dilatation, TURBT (medium, 4cm) Surgeon Jhonny Fatima MD Anesthesia General Description of Procedure Patient brought to the operative suite was prepped draped in routine sterile fashion 1 dorsal lithotomy position after the uneventful induction of a general anesthetic. I 1st had a dilated bladder neck contracture from 18-26 F in order to allow placement of a 24 F resectoscope. Careful inspection of his bladder shows recurrence only around the bladder neck, just inside the extending slightly into the trigone but not to the right ureteral orifice. This was positioned at about the 7 o'clock position. Additionally he has couple areas of implants that appeared to be very superficial in his prostatic urethra involving the left lateral lobe. I resected all the sites and cauterized the base with both a rollerball and loop electrode. This was done with care to avoid injury to the ureteral orifices. In the past he has seen to be refractory to gemci tabine installation and we opted not to place that at this time. Because of the resection of the prostatic urethra I did leave a 20FF catheter in place which I plan to leave for 3 additional days Drains Yes Packing No Pathology Yes Complications No immediate complications Condition Stable
[2023-09-28] MEDS: fentaNYL CITRATE INJ (*CRX) 100 MCG/2 ML VIAL 25 MCG IV PUSH (11:22)
[2023-09-28 11:27] LABS: Glucose Point of Care 95 mg/dl (65-105)
== END 2023-09-28 13:15 | disposition home or self-care (01) ==
PROVIDERS: PCP Family Medicine; Visit Provider Urology
PROC: 0T7D8ZZ Dilation of Urethra, Via Natural or Artificial Opening Endoscopic (ICD-10-PCS; CPT 52281; principal; 2023-09-28 10:45)
PROC: 0TBB8ZZ Excision of Bladder, Via Natural or Artificial Opening Endoscopic (ICD-10-PCS; CPT 52235; 2023-09-28 10:45)
DX: C67.4 Malignant neoplasm of posterior wall of bladder (principal); I10 Essential (primary) hypertension; E78.5 Hyperlipidemia, unspecified; E11.9 Type 2 diabetes mellitus without complications; J45.909 Unspecified asthma, uncomplicated; F32.A Depression, unspecified; I25.2 Old myocardial infarction; N40.1 Benign prostatic hyperplasia with lower urinary tract symptoms; K21.9 Gastro-esophageal reflux disease without esophagitis; N52.9 Male erectile dysfunction, unspecified; I25.10 Atherosclerotic heart disease of native coronary artery without angina pectoris; G47.33 Obstructive sleep apnea (adult) (pediatric); Z79.82 Long term (current) use of aspirin; Z79.4 Long term (current) use of insulin; Z79.02 Long term (current) use of antithrombotics/antiplatelets; Z98.890 Other specified postprocedural states; Z99.89 Dependence on other enabling machines and devices; Z95.0 Presence of cardiac pacemaker; Z95.1 Presence of aortocoronary bypass graft; Z87.891 Personal history of nicotine dependence; Z85.51 Personal history of malignant neoplasm of bladder; Z82.49 Family history of ischemic heart disease and other diseases of the circulatory system
CPT/HCPCS: 52235; 82948; 88305; J0690; J3010; J7120